=== PATIENT | male | born 1955 | race Caucasian/White ===

== ENCOUNTER 2019-08-12 05:30 | Day surgery (SDC) | payer BC ==
[2019-08-11 11:09] LABS: BASOPHILS 0.3 % (0-2); EOSINOPHILS 1.5 % (0-7); HEMATOCRIT 43.9 % (42.0-54.0); HEMOGLOBIN 14.9 g/dL (13.5-17.5); IMMATURE GRANULOCYTES 0.2 % (0-5); LYMPHOCYTES 24.1 % (15-50); MCH 31.8 pg (26.0-34.0); MCHC 33.9 g/dL (31.0-37.0); MCV 93.6 fL (80.0-100.0); MONOCYTES 6.7 % (2-11); NEUTROPHILS 67.2 % (40-80); RBC 4.69 10x6/uL (4.20-6.10); RDW 12.6 % (11.5-14.5)
[2019-08-11 11:10] LABS: PLATELET COUNT 245 10x3/uL (130-400)
[2019-08-11 11:18] LABS: ANION GAP 9.7 mmol/L (8-16); CALCIUM 9.6 mg/dL (8.5-10.1); CARBON DIOXIDE 32.3 mmol/L (21.0-32.0); CREATININE - SERUM 1.3 mg/dL (0.6-1.3)
[2019-08-11 11:28] LABS: INR 0.93 (0.85-1.17); PROTIME 12.5 SECONDS (11.6-15.0)
[~2019-08-12] VITALS: Ht 182.9 cm; Wt 95.3 kg
[~2019-08-12 05:30] MED LIST: BUPROPION PO; FLAGYL500 MG PO; FLOMAX0.4 MG PO; LEVAQUIN500 MG PO; LISINOPRIL PO; LOTEMAX 0.5% OPH5 ML RIGHT EYE; SURFAK240 MG PO
[2019-08-12 06:23] VITALS: BP 164/100; Ht 182.9 cm; Wt 95.3 kg
[2019-08-12] MEDS ORDERED: PERCOCET 10-321 EAC1 PO (09:58)
[2019-08-12] MEDS ORDERED: CYCLOBENZAPRINE10 MG PO (09:59)
[2019-08-12] MEDS ORDERED: FLOMAX0.4 MG PO (09:59)
[2019-08-12] MEDS ORDERED: MIRALAX17 GM PO (10:01)
--- NOTE | 2019-08-12 11:56 | NUR ---
1155 ATE 100% FL DIET 2ND ICE CREAM AND 3RD WATER SERVED.
--- NOTE | 2019-08-12 12:20 | NUR ---
1220 ASSISSTED UP TO BR TO ATTENPT TO VOIDS QS, IV DC'D WITH CATH INTACT. PT. CALLED HIS RIDE.
--- NOTE | 2019-08-12 13:08 | NUR ---
PT DC INSTRUCTIONS REVIEWED AT THIS TIME, PT VERBALIZES UNDERSTANDING. NAD NOTED. PT WAITING FOR RIDE TO ARRIVE AT THIS TIME.
--- NOTE | 2019-08-12 14:01 | OP ---
PATIENT NAME: CHANTAL ROSENTHAL MEDICAL RECORD: [id number] :55 LOCATION:[facility] ADMISSION DATE: SURGEON: JOSE MCGOWAN MD DATE OF OPERATION: 08/12/2019 PREOPERATIVE DIAGNOSIS: Recurrent right inguinal hernia, reducible without obstruction or gangrene. POSTOPERATIVE DIAGNOSES: Recurrent right inguinal hernia, reducible without obstruction or gangrene, indirect inguinal hernia. OPERATION PERFORMED: Open anterior repair with patch and plug technique. SURGEON: Jose Mcgowan MD ANESTHESIA: General with LMA per FAMILY ENGAGEMENT SPECIALIST. PREOPERATIVE NOTE: Mr. Rosenthal is a 64-year-old white male patient referred to me by Dr. Bateman a year or so ago, I operated him for an incarcerated right femoral hernia that was repaired with a Kugel technique through an anterior open approach and he did well except for having unexplained prolonged pain, which though did eventually resolve. However, he now has a tender intermittent bulge in the right groin area consistent with an indirect or direct hernia recurrence and has been quite symptomatic. He is brought to the hospital today as an outpatient to repair. I plan an open repair again. DESCRIPTION OF PROCEDURE: With the patient under general anesthesia in supine position, he was prepped and draped in a sterile manner. An oblique incision was made over the inguinal canal and carried down to the external oblique aponeurosis, which was opened parallel to its fibers and the underlying spermatic cord mobilized. This was more difficult than normal as the cord was rather fused to the floor of the inguinal canal. I did find an indirect inguinal hernia sac somewhat to my surprise as I was expecting a direct hernia. The indirect hernia sac was dissected and freed from the cord structures and reduced into the preperitoneal space. I was able to develop the preperitoneal space and palpate the floor of the inguinal canal and the femoral canal areas and noted that there was no direct and no femoral hernia component at this time. A Marlex size large light polypropylene plug was then placed in the internal ring and sutured in position with a few interrupted 3-0 Vicryl sutures. This maintained reduction of the indirect hernia sac. With further dissection, I was able to separate the cord structures from the floor of the canal and the cord was retracted with a Tyrone drain as needed. Hemostasis was obtained with electrocautery. The wound was infiltrated with 0.25% Marcaine with epinephrine and irrigated with Ancef and gentamicin solution. I took a piece of the Marlex light polypropylene patch and sutured this to the pubic tubercle and to the margins of the floor of the canal with interrupted simple 3-0 Vicryl sutures and cut the plastic to wrap around the cord and created a new more lateral and snug internal ring and the ends of this were tucked up under the external oblique. All sutures in the mesh were 3-0 Vicryl. I then closed the external oblique aponeurosis and found that it was too tight really to close over the cord and rather than doing a lot more dissection or relaxing incisions, I opted to close the external oblique aponeurosis posterior to the cord structures and this was done with a running 3-0 Prolene. Hanna's fascia was approximated anterior to the cord with interrupted inverted 3-0 Vicryl and the skin was closed with running intracuticular 4-0 Stratafix. The incision was sealed with Dermabond OPERATIVE REPORT [id number] GALO,CHANTAL glue and dressed with Maxorb Ag, Tegaderm, and Cavilon skin prep. The patient was awakened and taken to recovery room in stable condition returned to the recovery room. PLAN: The patient will be sent home today and instructed to use ice off and on today and for the next several days on the scrotum and groin areas. He should resume activities as tolerated. Certainly is advised to rest and take it easy for the next couple of days. He should keep the dressing dry and wait to shower until Sunday. After that, he can change the dressing if he needs to if it becomes wet or bloody beneath the plastic. If it stays clean and dry, he can leave it intact and I remove it when he comes to see me in the office next week. He is given prescriptions for Percocet 10/325, 14 of these, one p.o. every 6 hours p.r.n. pain and also Flexeril 10 mg 1 p.o. t.i.d. p.r.n. muscle spasm, 14 of these, and also MiraLax packets 30 of them, 1 package b.i.d. with a large glass of water to prevent constipation from the opioid analgesics and also Flomax 0.4 mg, 14 of these capsules, 1 p.o. daily to help prevent difficulty urinating. I will see the patient back in my office next week. Blood loss during the operation was insignificant and unreplaced. Sponges, instruments, and needles were accounted for. No drain was used and no surgical specimen was submitted for histopathology. Both the ilioinguinal nerve on the cord structures was resected. TRANSINT:[id number] Voice Confirmation ID: [id number] DOCUMENT ID: [id number] JOSE MCGOWAN MD at 1401 CC: MARILUZ BATEMAN MD [id number] DICTATION DATE: 08/12/19 1029 CAPACITY ANALYST: 08/12/19 1100 [facility] [address] [id number]
--- NOTE | 2019-08-12 14:33 | NUR ---
1300 DC INSTS GIVEN VOICED UNDERSTANDING RX GIVEN DRESSED RIDE COMING.
== END 2019-08-12 13:20 | disposition home or self-care (01) ==
LOC: D.OPS 05:30 → D.PAN 08:00 → D.OPS 13:20
PROVIDERS: ATTEND Surgery
DX: K40.91 Unilateral inguinal hernia, without obstruction or gangrene, recurrent (principal); I10 Essential (primary) hypertension; Z72.0 Tobacco use

== ENCOUNTER 2020-12-06 07:16 | Day surgery (SDC) | payer BC ==
[~2020-12-06] VITALS: Ht 182.9 cm; Wt 106.6 kg
--- NOTE | ~2020-12-06 | OP ---
PATIENT NAME: CHANTAL ROSENTHAL MEDICAL RECORD: [id number] :55 LOCATION:[facility] ADMISSION DATE: SURGEON: ELLIOT MILLAN MD DATE OF OPERATION: 12/06/2020 PREOPERATIVE DIAGNOSES: 1. Bashir C fracture of right distal fibula. 2. Right ankle syndesmotic disruption. POSTOPERATIVE DIAGNOSES: 1. Bashir C fracture of right distal fibula. 2. Right ankle syndesmotic disruption. PROCEDURE PERFORMED: 1. ORIF, right distal fibula. 2. ORIF right ankle syndesmosis. INDICATIONS: Mr. Rosenthal is a 65-year-old male who injured his right ankle approximately 2 weeks ago. He was seen in the outside clinic where he was noted to have an ankle fracture. He was placed into a boot and instructed to follow up with orthopedics. When we saw him in clinic last week, he was found to have a Bashir C fracture of the distal fibula with syndesmotic disruption and lateral subluxation of the talus. He was placed into a splint and arrangements were made for him to come to the operating room today for operative repair. Risks, benefits, and alternatives of surgery were discussed with the patient and consent was obtained. DESCRIPTION OF PROCEDURE: The patient was met in the holding area where his identity and confirmation of procedure was performed. The right lower extremity was marked. He was taken to the operating room where he was placed supine on the operating table, and anesthesia was administered. Tourniquet was applied to the right thigh. The right lower extremity was prepped and draped in a sterile fashion. The patient received preoperative antibiotics and timeout was performed prior to initiating the case. On initiation of the case, the leg was exsanguinated and tourniquet was raised. Total tourniquet time was 125 minutes. We began with fixation of the fibula. Incision was made over the posterior aspect of the fibula along the lateral ankle. We continued our dissection deep to the fascia of the peroneal tendons. The fascia was then split longitudinally. Tissue was elevated off of the lateral aspect of the fibula. There was quite a bit of callus formation around the fracture site. The fracture was completely exposed as well as the bone proximally and distally for plate placement. Fracture was then debrided of callus and hematoma. There was a butterfly fragment along the posterior aspect of the fracture. We were able to reapproximate the proximal and distal ends to reestablish our length and we provisionally held this with a K-wire. The butterfly fragment was then reduced with lobster claw clamps. Two lag screws were placed proximally and one lag screw was placed distally for fixation of our fracture. These were 2.0 Medartis lag screws placed by technique. An Arthrex titanium distal fibula plate was then positioned over the lateral aspect of the distal fibula. We adjusted it for alignment and then placed K wires to hold it in place. We then placed a 3.5 cortical screw just distal to the fracture to compress the plate to the bone. The distal end of the plate was then filled with 2.7 locking screws. Four 3.5 cortical screws were placed in the proximal end of the plate to complete our fracture fixation. This provided good realignment and fixation of the fibula fracture. We then attempted to reduce the syndesmosis with a large [place] OPERATIVE REPORT [id number] STACK,CHANTAL GARCIA clamp. There was still widening medially after the clamp was placed and compressed. We therefore made a small incision along the medial ankle at the tip of the medial malleolus. Incision was made through the medial tissues and a pituitary rongeur was used to debride tissues medially. There was still some widening at the medial clear space after this and we then decided to move to the syndesmosis and performed the same debridement technique. The Tamir Tong clamp was removed. Incision was made over the anterior syndesmosis. We incised through the skin and subcutaneous tissues, dissected down to the syndesmosis. It was then split longitudinally and the pituitary was used to debride tissue from around the syndesmotic joint. This provided a good release of the tissues and we were then able to reapproximate our syndesmosis and reestablished the ankle mortise. The foot was supinated and the clamp was placed and tensioned. Two Arthrex titanium TightRopes were then placed across the syndesmosis. The TightRope was drilled and then advanced through the far cortex. The button was flipped under direct visualization and tension was applied to the TightRope. This was repeated for the superior and inferior TightRope. These were sequentially tightened and again providing good realignment of our ankle syndesmosis and ankle mortise. Once we were pleased with the tension, the suture ends were cut. Final images were obtained. The ankle showed good alignment of the fracture. There was still some instability at the medial tissues with external rotation stress view, but the medial clear space remained stable. Wounds were irrigated thoroughly with saline. The deep deltoid ligament medially was closed with #1 Vicryl suture. The subcutaneous tissues were closed with 2-0 Vicryl and the skin was closed with nylon. Laterally, the fascia over the peroneal tendons was closed with Vicryl suture. The subcutaneous tissues were closed with Vicryl and the skin was closed with nylon. Sterile dressing was placed. The patient was turned back over to anesthesia where he was awakened, extubated, and taken to recovery room in stable condition. POSTOPERATIVE PLAN: The patient is going to return home with his family. He is to remain nonweightbearing on the right lower extremity and he is to keep the leg elevated. We will plan to see him back in clinic in 2 weeks and will likely transition him to a cast at that time given the injury to his medial tissues. COMPLICATIONS: None. ESTIMATED BLOOD LOSS: 25 mL. ANESTHESIA: General with peripheral nerve block. TRANSINT:[id number] Voice Confirmation ID: [id number] DOCUMENT ID: [id number] ELLIOT MILLAN MD CC: [id number] DICTATION DATE: 12/06/20 1458 REFRACTIVE SURGEON: 12/06/20 2339 [facility] 12/06/20 [facility] [address] [place] [address]
[~2020-12-06 07:16] MED LIST changes: +BUPROPION HCL150 M1 PO; +CYCLOBENZAPRINE10 MG PO; +HYDROCODON-ACE1 EAC7 PO; +LISINOPRIL-HCT1 EAC7 PO; +MIRALAX17 GM PO; +PERCOCET 10-321 EAC1 PO
[2020-12-06 08:15] LABS: BASOPHILS 0.4 % (0-2); HEMATOCRIT 44.8 % (42.0-54.0); HEMOGLOBIN 14.8 g/dL (13.5-17.5); IMMATURE GRANULOCYTES 0.1 % (0-5); LYMPHOCYTE ABS# 1.24 10x3/uL (1.32-3.57); LYMPHOCYTES 12.9 % (15-50); MCH 30.8 pg (26.0-34.0); MCV 93.1 fL (80.0-100.0); MEAN PLATELET VOLUME 9.6 fL (7.4-10.4); MONOCYTES 8.9 % (2-11); NEUTROPHIL ABS# 7.26 10x3/uL (1.78-5.38); NEUTROPHILS 75.7 % (40-80); PLATELET COUNT 275 10x3/uL (130-400); RBC 4.81 10x6/uL (4.20-6.10); RDW 12.7 % (11.5-14.5); WBC 9.6 10x3/uL (4.8-10.8)
[2020-12-06 08:25] LABS: CALC OSMOLALITY 276 mosm/kg (275-300); CHLORIDE - SERUM 100 mmol/L (98-107); GLUCOSE 130 mg/dL (74-106); POTASSIUM - SERUM 4.5 mmol/L (3.5-5.1); SODIUM 136 mmol/L (136-145); UREA NITROGEN 21 mg/dL (7-18); eGFR NON AFRICAN AMERICAN 80 mL/min (90-120)
[2020-12-06 08:56] VITALS: BP 147/97; Ht 182.9 cm; Wt 106.6 kg
--- NOTE | 2020-12-06 14:52 | NUR ---
PT NOT ROUSABLE WITH MODERATE STIMULATION, OPA REMAINS IN PLAINS.
--- NOTE | 2020-12-06 15:17 | NUR ---
PT REMAINS UNAROUSABLE VIA MEDIUM STIMULATION, OPA REMAINS IN PLACE, ALL VSS
--- NOTE | 2020-12-06 15:23 | NUR ---
PT AWAKENING, OPA REMOVED
--- NOTE | 2020-12-06 17:22 | NUR ---
1700 IV D/C'D WITH TIP INTACT. PATIENT UP TO BATHROOM. VOIDED WITHOUT PROBLEMS. PATIENT DRESSED. DISCHARGE INSTRUCTIONS GIVEN TO PATIENT AND HIS SPOUSE WITH UNDERSTANDING VOICED.
--- NOTE | 2020-12-06 17:37 | NUR ---
9637 PATIENT REQUESTED PAIN MEDICATION TO BE TAKEN PRIOR TO DISCHARGE HE IS ANTICIPATING THE BLOCK WEARING OFF AND HE WILL BE WAITING FOR HIS PRESCRIPTION TO BE FILLED. MEDICATED WITH NORCO 7.5/325MG 1 PO. WILL MONITOR FOR A SHORT PERIOD OF TIME THEN DISCHARGE HOME.
== END 2020-12-06 17:45 | disposition home or self-care (01) ==
LOC: D.OPS 07:16
PROVIDERS: Anesthesiology; ATTEND Orthopaedic Surgery
DX: S82.491A Other fracture of shaft of right fibula, initial encounter for closed fracture (principal); S93.431A Sprain of tibiofibular ligament of right ankle, initial encounter; M25.571 Pain in right ankle and joints of right foot; M25.561 Pain in right knee